=== PATIENT | male | born 1975 | race Caucasian/White ===

== ENCOUNTER 2021-03-03 07:14 | Observation (INO) | payer MEDICARE, MEDICAID ==
[~2021-03-03] VITALS: Ht 195.6 cm; Wt 140.6 kg
[2021-03-03 08:16] LABS: HEMOGLOBIN 15.7 gm/dl (14.0-17.5); RED BLOOD COUNT 5.12 M/UL (4.20-5.50); WHITE BLOOD COUNT 8.2 K/UL (4.5-11.0)
[2021-03-03 09:02] LABS: BUN/CREATININE RATIO 21 (0-10)
[2021-03-03] MEDS ORDERED: AMLODIPINE BESYL5 MG PO (10:56)
[2021-03-03] MEDS ORDERED: VICTOZA 3-0.6 MG/0.1 SQ (10:56)
[2021-03-03] MEDS ORDERED: LISINOPRIL-HCT1 EAC1 PO (10:57)
[2021-03-03] MEDS ORDERED: METFORMIN HCL500 MG PO (10:57)
[2021-03-03] MEDS ORDERED: METOPROLOL SUCC25 MG PO (10:57)
[2021-03-03] MEDS ORDERED: PRAVASTATIN SOD10 MG PO (10:58)
[2021-03-03] MEDS ORDERED: VITAMIN B-12500 MCG PO (10:58)
[2021-03-03] MEDS ORDERED: ASPIRIN81 MG PO (10:58)
[2021-03-03] MEDS ORDERED: [UNRECOGNIZED DRUG - OTHER] PO (10:59)
[2021-03-03] MEDS ORDERED: VITAMIN D 40400 UNIT PO (10:59)
[2021-03-04 07:18] LABS: HEMOGLOBIN 15.5 gm/dl (14.0-17.5); RED BLOOD COUNT 5.17 M/UL (4.20-5.50); WHITE BLOOD COUNT 7.4 K/UL (4.5-11.0)
[2021-03-04 07:31] LABS: BUN/CREATININE RATIO 14 (0-10)
== END 2021-03-04 17:40 | disposition home or self-care (01) ==
LOC: ER1 07:14 → CDU 09:22 → MED SURG 4 09:22
PROVIDERS: Emergency Medicine; Physician Assistant; ADMIT Internal Medicine
DX: R20.0 Anesthesia of skin (principal); R07.89 Other chest pain; I45.10 Unspecified right bundle-branch block; E87.6 Hypokalemia; E11.9 Type 2 diabetes mellitus without complications; I10 Essential (primary) hypertension; E78.5 Hyperlipidemia, unspecified; Z20.822 Contact with and (suspected) exposure to COVID-19; Z79.82 Long term (current) use of aspirin; Z79.84 Long term (current) use of oral hypoglycemic drugs; Z79.899 Other long term (current) drug therapy; Z88.0 Allergy status to penicillin
CPT/HCPCS: ECHO; 36415; 71045; 80048; 80053; 82550; 82553; 82962; 83735; 83874; 84484; 85025; 93005; 93306; 99285; G0378; U0002